=== PATIENT | female | born 1985 | race Caucasian/White ===

== ENCOUNTER 2021-12-11 11:09 | Emergency (ER) | payer OTHER, MEDICAID, SELFPAY ==
[2021-12-11 11:39] VITALS: BP 138/98; PULSE 96; RESP 19; TEMP 36.2; O2SAT 100; BMI 19.8
[2021-12-11 14:25] LABS: Bacteria Urine Few (2-10); Culture Indicated Urine Cult Not Indicated; RBC Urine 0-1/HPF (0-5/HPF); Squamous Epithelial Cell Urine 5-10 /HPF (0-5/HPF); WBC Urine None Seen (0-5/HPF)
--- NOTE | 2021-12-11 14:35 | DI.US.S_ITS ---
PROCEDURE: US EXTREMITY NONVASC LOWER LT INDICATIONS: LUMP LEFT LABIA MAJORIS TECHNIQUE: Real-time scanning was performed of the left labia majora , with image documentation. COMPARISON: None. FINDINGS: Heterogeneous region measuring 3.8 x 3.8 x 3.7 cm. No internal vascularity is identified. No changes appreciated with Valsalva. No surrounding hyperemia. No overlying skin erythema noted by the commodities broker. IMPRESSION: Heterogeneous avascular region at the left labia majora measuring 3.8 cm. Etiology is uncertain. No changes appreciated with Valsalva maneuver. However, this does not exclude hernia. Abscess is also possibility but the abnormality is quite large in there is no surrounding hyperemia. Hematoma could have this appearance. Dictated by: Zia Pineda M.D. on 12/11/2021 at 15:07 Approved by: Zia Pineda M.D. on 12/11/2021 at 15:14
--- NOTE | 2021-12-11 15:40 | ED.SKABFB ---
HPI - Skin/Abscess/Foreign Bdy <Augustus Wagoner PA-C - Last Filed: 12/11/21 17:27> General Chief complaint: Skin/Abscess/Foreign Body Stated complaint: Large lump on inner upper thigh Time Seen by Provider: 12/11/21 14:12 Source: patient Mode of arrival: Family Vehicle Limitations: no limitations History of Present Illness HPI narrative: Patient is a 36-year-old female presenting to the emergency department today for an evaluation a mass on her inner left thigh. Patient states that she noticed the development of the mass yesterday and notes that it has progressively become more painful. She states that she has also experienced episodes of chills and nausea, stating that she has also experienced sinus pressure. She states that she is sexually active with 1 partner and initially believed that the area of soreness was from sexual intercourse. Of note, patient denies any abnormal vaginal discharge or increased vaginal bleeding. She denies fever, chest pain, cough, shortness of breath, vomiting, constipation, abdominal pain, dysuria, hematuria, or any other concerning symptoms. No further concerns were voiced at this time. Related Data Previous Rx's Medication Instructions Recorded amoxicillin 500 mg-potassium 1 tab PO BID #20 tab 12/11/21 clavulanate 125 mg tablet (Augmentin) oxycodone-acetaminophen 5 mg-325 1 tab PO Q6H PRN #20 tab 12/11/21 mg tablet (Percocet) Allergies Allergy/AdvReac Type Severity Reaction Status Date / Time No Known Drug Allergies Allergy Verified 12/11/21 11:39 Review of Systems <Augustus Wagoner PA-C - Last Filed: 12/11/21 17:27> Constitutional Constitutional: Denies chills, Denies fatigue, Denies fever(s), Denies frequent falls, Denies lethargy and Denies weakness Eyes Eyes: Denies loss of vision ENT Ears, Nose, Mouth, and Throat: Denies dizziness and Denies neck pain Cardiovascular Cardiovascular: Denies chest pain, Denies irregular heart rhythm, Denies lightheadedness, Denies palpitations, Denies dyspnea, Denies dyspnea on exertion and Denies orthopnea Respiratory Respiratory: Denies cough, Denies dyspnea, Denies dyspnea on exertion and Denies wheezing Gastrointestinal Gastrointestinal: Denies abdominal pain, Denies change in bowel habits, Denies diarrhea, Denies nausea and Denies vomiting Genitourinary Genitourinary: Denies hematuria, Denies flank pain, Denies urinary incontinence and Denies urinary urgency Musculoskeletal Musculoskeletal: Denies back pain, Denies muscle weakness, Denies neck pain, Denies numbness and Denies tingling Integumentary/Breasts Skin/Breast: Denies pruritus, Denies erythema, Denies rash, Denies wounds and Reports other (Mass along inner left thigh) Neurologic Neurologic: Denies behavioral changes, Denies confusion, Denies dizziness, Denies frequent falls, Denies loss of vision, Denies numbness, Denies tingling and Denies weakness Psychiatric Psychiatric: Denies behavioral changes and Denies confusion Endocrine Endocrine: Denies fatigue and Denies palpitations Allergic/Immunologic Allergic/Immunologic: Denies wheezing Patient History <Augustus Wagoner PA-C - Last Filed: 12/11/21 17:27> Social History Smoking Status: Current some day smoker Smoking Status: Current some day smoker tobacco type: cigarettes alcohol intake frequency: holidays/special occasions only Substance Use Type: marijuana Exam <Augustus Wagoner PA-C - Last Filed: 12/11/21 17:27> Narrative Exam Narrative: GENERAL: 36 year old patient appears stated age. Well-developed patient, in no acute distress. Appears anxious. HEAD: Atraumatic. Normocephalic. EYES: Pupils equal round and reactive. Extraocular motions intact. No scleral icterus. No injection or drainage. ENT: Nose without bleeding, purulent drainage. Throat without erythema, tonsillar hypertrophy or exudate. Airway patent. NECK: Trachea midline. Non tender CARDIOVASCULAR: Regular rate and rhythm without murmurs, gallops, or rubs. RESPIRATORY: Clear to auscultation. Breath sounds equal bilaterally. No wheezes, rales, or rhonchi. GASTROINTESTINAL: Abdomen soft, non-tender, nondistended. EXTREMITIES: No edema or joint tenderness. BACK: Nontender without deformity or crepitance. No flank tenderness. NEURO: AOx3. SKIN: No rash or erythema of visible areas. Approximately 3 cm in diameter area swelling that is mobile and tender to palpation. No overlying erythema, the mass is not noticeably fluctuant. No active discharge appreciated. Initial Vital Signs Initial Vital Signs: Vital Signs Temperature 97.1 F L 12/11/21 11:39 Pulse Rate 96 H 12/11/21 11:39 Respiratory Rate 19 12/11/21 11:39 Blood Pressure 138/98 H 12/11/21 11:39 Pulse Oximetry 100 12/11/21 11:39 Course <Augustus Wagoner PA-C - Last Filed: 12/11/21 17:27> Course Course Narrative: Ultrasound obtained. CBC, CMP, lipase ordered. Dr. Hollis examined the patient as well and believes the patient has a Bartholin gland abscess that requires SENIOR IT RECRUITER follow-up. Orders Ordered: ED Orders 12/11/21 13:32 Urine Microscopic Stat 12/11/21 14:35 US extremity nonvasc lower lt Stat 12/11/21 15:43 CBC Auto Diff [Complete Blood Count AUTO DIFF] Stat CMP [Comprehensive Metabolic Panel] Stat Lipase Stat Consultations Consultation #1: Consult with Dr. Weaver (SENIOR IT RECRUITER). Recommends having the patient come into the operating room tomorrow to have the abscess drained. Requests that in the meantime the patient begin a course of Augmentin and to be sent home with a prescription for Percocet. Time: 15:10 Vital Signs Vital signs: Vital Signs - 8 hr 12/11/21 11:39 Temperature 97.1 F L Pulse Rate 96 H Respiratory Rate 19 Blood Pressure 138/98 H Pulse Oximetry 100 MDM - Skin/Abscess/Foreign Bdy <Augustus Wagoner PA-C - Last Filed: 12/11/21 17:27> Lab Data Result diagrams: 12/11/21 15:43 12/11/21 15:43 Labs: Lab Results 12/11/21 12/11/21 12/11/21 Range/Units 13:32 15:43 15:43 WBC 9.0 (4.5-11.0) X10^3/uL RBC 4.78 (4.0-5.2) X10^6/uL Hgb 13.9 (12.0-16.0) g/dL Hct 41.0 (36-46) % MCV 85.8 (80-100) fL MCH 29.0 (26-34) PG MCHC 33.8 (30-36) % RDW 14.2 (11.6-14.8) % Plt Count 393 (150-400) X10^3/uL Neut % (Auto) 47.2 L (50-75) % Lymph % (Auto) 39.4 (25-40) % [place] % (Auto) 5.6 (3-14) % Eos % (Auto) 7.5 H (2-4) % Baso % (Auto) 0.3 (0-2) % Neut # (Auto) 4300 (7927-8370) /uL Lymph # (Auto) 3600 (8353-0584) /uL [place] # (Auto) 500 (0-900) /uL Eos # (Auto) 700 H (0-450) /uL Baso # (Auto) 0 (0-100) /uL Sodium 137 (137-145) mmol/L Potassium 3.2 L (3.4-5.1) mmol/L Chloride 102 (98-107) mmol/L Carbon Dioxide 30 (22-32) mmol/L BUN 12 (7-17) mg/dL Creatinine 0.76 (0.52-1.04) mg/dL Estimated GFR > 60.0 (>60) mL/min BUN/Creatinine Ratio 15.8 (6-22) Glucose 115 H (70-100) mg/dL Calcium 9.6 (8.4-10.2) mg/dL Total Bilirubin 0.3 (0.2-1.3) mg/dL AST 34 (14-36) IU/L ALT 19 (<35) IU/L Alkaline Phosphatase 50 (38-126) U/L Total Protein 8.2 (6.3-8.2) g/dL Albumin 4.7 (3.5-5.0) g/dL Globulin 3.5 (1.7-4.1) g/dL Albumin/Globulin Ratio 1.3 (1.0-2.8) Lipase 45 (23-300) U/L Urine RBC 0-1/hpf (0-5/HPF) Urine WBC None seen (0-5/HPF) Ur Squamous Epith Cells 5-10 /hpf H (0-5/HPF) Urine Bacteria Few (2-10) H (None) Ur Culture Indicated? Cult not indicated Point of Care Testing Test Results Negative Urine Dip Bedside Urine Glucose Negative Bedside Urine Bilirubin - Negative Bedside Urine Ketone - Negative Urine Specific [place] 1.005 Bedside Urine Occult Blood + Bedside Urine pH 6.5 Bedside Urine Protein - Negative Bedside Urine Urobilinogen - Negative Bedside Urine Nitrite - Negative Bedside Urine Leukocytes - Negative Esterase Imaging Data US - lower extremity: Radiologist's Impression: PROCEDURE:? US EXTREMITY NONVASC LOWER LT ? INDICATIONS:? LUMP LEFT LABIA MAJORIS ? TECHNIQUE:? Real-time scanning was performed of the left labia majora , with image documentation.? ? COMPARISON:? None. ? FINDINGS:? Heterogeneous region measuring 3.8 x 3.8 x 3.7 cm.? No internal vascularity is identified.? No changes appreciated with Valsalva.? No surrounding hyperemia.? No overlying skin erythema noted by the gut cleaner. ? IMPRESSION:? Heterogeneous avascular region at the left labia majora measuring 3.8 cm.? Etiology is uncertain. No changes appreciated with Valsalva maneuver.? However, this does not exclude hernia.? Abscess is also possibility but the abnormality is quite large in there is no surrounding hyperemia.? Hematoma could have this appearance.? ? ? Dictated by: Zia Pineda M.D. on 12/11/2021 at 15:07 ? ? Approved by: Zia Pineda M.D. on 12/11/2021 at 15:14 ? MDM Narrative Medical decision making narrative: Differential diagnosis to consider but not limited to [place] line when cyst versus abscess versus lymphadenopathy versus hernia. Discussed ultrasound results with patient and informed her of discussion with Dr. Weaver. Plan is to have the patient go to the operating room tomorrow to have the abscess drained. Patient expresses understanding and agrees to plan. Based off conversation with Dr. Weaver I agreed to send the patient home with a prescription for Augmentin and pain medications. Patient states at this time she is comfortable being discharged home and is stable for discharge. Strict return precautions were discussed with the patient prior to discharge. Discharge Plan Departure Patient Disposition: Home Clinical Impression: Abscess of Bartholin's gland Instructions: DI for Vulvar Abscess Activity Restrictions/Additional Instructions: *You have been diagnosed with Bartholin gland abscess *What to do: *Please continue to take your regular medications as directed. [X] New medication prescriptions sent to your pharmacy: [facility] [place] - Augmentin [X] New medication written as a paper prescription: Percocet [ ] No new medications given You were evaluated in the emergency department today for tenderness and swelling along the left inner thigh. Ultrasound imaging and physical examination are consistent with a Bartholin gland abscess. Dr. Weaver agreed to drain the abscess in the operating room tomorrow. I have sent to home with prescriptions for Augmentin, which is an antibiotic. Additionally, I have prescribed Percocet to help alleviate any pain or discomfort. Please apply warm compresses to the area to alleviate discomfort. Please follow-up with the primary care provider within the next 2-3 days for further evaluation. Do not hesitate to return to the emergency department if you experience worsening pain, fever, discharge from the abscess, or any other concerning symptoms. *Please follow up with your primary care provider in 2-3 days, call for an appointment. Let them know you were seen in the Emergency Department and that we ask that you be seen in follow up. We will electronically transmit a record of today's note if your PCP is in our system *If you do not have a primary care provider please contact the [facility] line at [phone]. They will ask some questions about your medical history and help get you set up with a doctor in the community. *Return to Emergency Department if you should have any new, worsening or concerning symptoms, such as fever greater than 101 F, shaking chills, worsening pain, persistent vomiting or other bothersome symptoms. Prescriptions: New amoxicillin-pot clavulanate [Augmentin] 500-125 mg tablet 1 tab PO BID Qty: 20 0RF oxycodone-acetaminophen [Percocet] 5-325 mg tablet 1 tab PO Q6H PRN (Reason: pain) Qty: 20 0RF Referrals: Taniya Santana MD [Primary Care Provider] -
[2021-12-11 15:57] LABS: Add Manual Diff / Slide Review NO; Basophils Absolute Auto 0 /uL (0-100); Basophils Percent Auto 0.3 % (0-2); Eosinophils Absolute Auto 700 /uL (0-450); Eosinophils Percent Auto 7.5 % (2-4); Hemoglobin 13.9 g/dL (12.0-16.0); Lymphocytes Absolute Auto 3600 /uL (1100-4500); Lymphocytes Percent Auto 39.4 % (25-40); Mean Corpuscular HGB Conc 33.8 % (30-36); Mean Corpuscular Volume 85.8 fL (80-100); Monocytes Absolute Auto 500 /uL (0-900); Monocytes Percent Auto 5.6 % (3-14); Neutrophils Absolute Auto 4300 /uL (1500-7000); Neutrophils Percent Auto 47.2 % (50-75); Platelet Count 393 X10^3/uL (150-400); Red Blood Cell Count 4.78 X10^6/uL (4.0-5.2); Red Cell Distribution Width 14.2 % (11.6-14.8)
[2021-12-11 16:02] LABS: Alanine Aminotransferase 19 IU/L (<35); Albumin 4.7 g/dL (3.5-5.0); Albumin Globulin Ratio 1.3 (1.0-2.8); Alkaline Phosphatase 50 U/L (38-126); Aspartate Aminotransferase 34 IU/L (14-36); BUN Creatinine Ratio 15.8 (6-22); Bilirubin Total 0.3 mg/dL (0.2-1.3); Blood Urea Nitrogen 12 mg/dL (7-17); Calcium 9.6 mg/dL (8.4-10.2); Carbon Dioxide 30 mmol/L (22-32); Chloride 102 mmol/L (98-107); Estimated Glomerular Filt Rate > 60.0 mL/min (>60); Globulin 3.5 g/dL (1.7-4.1); Glucose 115 mg/dL (70-100); HEMOLYSIS < 15 (0-50); Lipase 45 U/L (23-300); Potassium 3.2 mmol/L (3.4-5.1); Sodium 137 mmol/L (137-145); Total Protein 8.2 g/dL (6.3-8.2)
== END 2021-12-11 17:42 | disposition home or self-care (01) ==
PROVIDERS: Emergency Medicine; Emergency Provider Physician Assistant; PCP Family Medicine
DX: N75.1 Abscess of Bartholin's gland (principal)
CPT/HCPCS: 76882; 80053; 81003; 81015; 81025; 83690; 85025; 99282; 99283

== ENCOUNTER 2021-12-12 14:46 | Day surgery (SDC) | payer OTHER, MEDICAID, SELFPAY ==
[2021-12-12] VITALS (10 sets, daily range): BP systolic 109–146; BP diastolic 61–106; PULSE 71–90; RESP 12–18; TEMP 36.4–37; O2SAT 98–100; BMI 19.8
[2021-12-12] MEDS: LACTATED RINGERS 1,000 ML 42 ML IV (15:32)
[2021-12-12 15:54] LABS: COVID19 -Nasal RAPID Negative (Negative)
--- NOTE | 2021-12-12 16:23 | PM.HP.1 ---
History of Present Illness History of Present Illness Date Patient Seen: 12/12/21 Time Patient Seen: 16:23 Chief complaint: SDC Narrative: Patient is a 36-year-old 0 who presents for an incision and drainage of a left Bartholin's gland abscess verses excision of a Bartholin's gland cyst. Patient was seen in the emergency department last evening. She had eaten on her way here. We were not able to take her to the operating room last evening. Patient History Family & Social History Social History: household members significant other Tobacco & Substance use: Tobacco type cigarettes,cannabis/marijuana Smoking Status Current some day smoker alcohol intake current alcohol intake frequency holiday/special occasion Substance Use Type marijuana Meds Home Medications and Allergies Home Medications Medication Instructions Recorded Confirmed Type amoxicillin 500 mg-potassium 1 tab PO BID #20 tab 12/11/21 12/12/21 Rx clavulanate 125 mg tablet (Augmentin) oxycodone-acetaminophen 5 mg-325 1 tab PO Q6H PRN #20 tab 12/11/21 12/12/21 Rx mg tablet (Percocet) bupropion HCl 100 mg tablet 100 mg PO DAILY 12/12/21 12/12/21 History dextroamphetamine-amphetamine 20 40 mg PO BID 12/12/21 12/12/21 History mg tablet escitalopram oxalate 5 mg tablet 20 mg PO DAILY 12/12/21 12/12/21 History lorazepam 0.5 mg tablet 0.25 mg PO DAILY PRN 12/12/21 12/12/21 History valacyclovir 1 gram tablet 1 mg PO DAILY 12/12/21 12/12/21 History Allergies Allergy/AdvReac Type Severity Reaction Status Date / Time No Known Drug Allergies Allergy Verified 12/11/21 11:39 Exam Vital Signs (past 8 hours): - 12/12/21 15:33 Temperature 98.4 F Pulse Rate 86 Respiratory Rate 16 Blood Pressure 146/95 H Pulse Oximetry 100 Oxygen Delivery Method Room Air Narrative Exam Narrative: HEENT: No thyromegaly, no anterior cervical or supraclavicular lymphadenopathy. Lungs:Clear to auscultation bilaterally, no wheezes. Cardiovascular: Regular rate and rhythm, no murmurs, rubs, or gallops. Abdomen: No scars. No hepatosplenomegaly. No masses palpable. External genitalia: 3.5 cm x 3.5 cm mass in the left Bartholin's gland Vagina: Normal Cervix: Normal. Nulliparous Bimanual exam: 6 Week size uterus. Mobile. No adnexal masses or tenderness Objective Labs Labs: Laboratory Results - last 24 hr 12/12/21 15:17 SARS-CoV-2 (PCR) Negative Assessment & Plan Assessment & Plan narrative: Assessment: 36-year-old 0 with a left Bartholin's gland abscess/possible cyst Plan: Incision and drainage of left Bartholin's gland abscess, versus excision of the Bartholin's gland cyst. The risks, benefits, and alternatives to the procedure were explained to the patient. The risks including bleeding and infection. She understands these risks and agrees to proceed. A full par Q was held and consent form was signed. COVID-19 COVID-19 status: Negative Result date/Date tested (Pos, Neg/Pending): 12/12/21 Time Spent With Patient Time with patient: less than 30 minutes Critical Care time: I spent a total of [] minutes of critical care time on this patient's care today; this time is exclusive of procedural time.
--- NOTE | 2021-12-12 16:28 | PM.PREOP ---
Pre-operative Note COVID-19 COVID-19 status: Negative Result date/Date tested (Pos, Neg/Pending): 12/12/21 Criteria for continued procedure: Delay expected to result in less-positive ultimate med/surg outcome and Non-surgical alternatives not available or appropriate per current SOC Interval Note History & Physical reviewed/Exam performed by Physician: Yes Changes to H&P: No H&P completed within 30 days and has changed as indicated here:: 12/12/21
--- NOTE | 2021-12-12 16:52 | SUR.OPER ---
Lithotomy on padded OR bed, head on pillow, arms secured on padded arm boards at <90 degrees abduction. Legs secured in padded yellow fins stirrups.
[2021-12-12] MEDS: BUPIVACAINE 0.5% (PF) 30 ML, EPINEPHrine 0.15 MG INJ (17:02)
--- NOTE | 2021-12-12 17:25 | PM.GYNOP.1 ---
Operative Date/Time/Diagnoses Date of procedure: 12/12/21 Time of procedure: 17:25 Pre-op diagnosis: Left Bartholin's gland cyst vs abscess Post-op diagnosis: same Procedure & Clinicians Procedure: Procedures Operation Date: 12/12/21 15:45 Actual Procedure Side Surgeon p Incision and Drainage vulvar Hematoma Left Heena Weaver MD Indications: Painful lump on the left side of the vulva Surgeon: Heena Weaver Anesthesia Type: General (LMA) and Local Operative Notes Findings: 5cm x 4cm mass on the left vulva Closure Type: not applicable Specimen(s): none Estimated blood loss (mL): 5 Blood products transfused: none Procedure in detail: After informed consent was obtained, the patient was taken to the operating room and placed in the dorsal supine position. After adequate LMA general anesthesia was achieved, she was placed in the dorsal lithotomy position, and prepped and draped in the usual sterile fashion. A time-out was performed. An examination under anesthesia revealed a 5 cm x 4 cm mass of the left vulva. This did not appear to be involving the Bartholin's gland. 6 cc of 0.5% Marcaine with epinephrine were injected subcutaneously. A 1.5 cm incision was made over the mass and carried through to the cavity. Upon entering the cavity there was a large amount of old clot that extruded from the wound. The wound was probed with a hemostat. Several more clots came out of cavity. The cavity was irrigated with warm normal saline. It was probed again with a hemostat. No further clot was seen. The Bovie was used to cauterize a bleeding area in the cavity. Two deep sutures with 3-0 chromic were placed to close the cavity. Four simple interrupted sutures with 3-0 chromic were used to keep the wound open to drain. Hemostasis was achieved. Sponge, lap, and instrument counts were correct x2. The patient tolerated the procedure well, and was taken to PACU in stable condition. Complications: none Post-operative Condition: stable Disposition: PACU Plan for aftercare: Home after recovery
[2021-12-12] MEDS: OXYCODONE/ACETAMINOPHEN 5/325 TABLET 1 TAB PO (17:53)
[2021-12-12] MEDS: KETOROLAC 30 MG/ML VIAL IV (17:55)
--- NOTE | 2021-12-12 18:29 | SUR.PHASEII ---
1825-12/12/21 Report off to Aide. mother update. call to ride for discharge.
[2021-12-12] MEDS: ONDANSETRON 4 MG/2 ML INJ IV (19:05)
--- NOTE | 2021-12-12 19:15 | SUR.PHASEII ---
Pt up to BR. developed nausea after ambulation. States she thinks it's the Percocet. Dr Weiner notified via Dr Avery of nausea and order for zofran received. Pt now lying down, cool rag to head, resting.
== END 2021-12-12 19:30 | disposition home or self-care (01) ==
PROVIDERS: PCP Family Medicine; Referring Provider Obstetrics & Gynecology; Visit Provider Obstetrics & Gynecology
PROC: (CPT 56440; principal; 2021-12-12 15:45)
DX: N90.89 Other specified noninflammatory disorders of vulva and perineum (principal); F17.210 Nicotine dependence, cigarettes, uncomplicated
CPT/HCPCS: 56405; 81025; 87635; J0171; J1100; J1885; J2250; J2405; J2704; J3010

== ENCOUNTER → 2023-01-30 10:26 | Outpatient (CLI) | payer OTHER, MEDICAID, SELFPAY ==
--- NOTE | 2023-01-30 10:29 | DI.RAD.S_ITS ---
PROCEDURE: XR HAND RT 2V INDICATIONS: bilateral trigger thumbs TECHNIQUE: 2 views of the hand(s) acquired. COMPARISON: None. FINDINGS: Bones: No fractures or dislocations. Carpal bones are normally aligned. No suspicious bony lesions. Soft tissues: No suspicious soft tissue calcifications. 1-2 millimeter radiopaque foreign body projecting along the radial side of the 2nd middle phalanx. IMPRESSION: No acute bony abnormality. Small radiopaque foreign body projecting over the 2nd middle phalanx. Dictated by: Alvaro Monaco M.D. on 01/30/2023 at 11:11 Approved by: Alvaro Monaco M.D. on 01/30/2023 at 11:12
--- NOTE | 2023-01-30 10:29 | DI.RAD.S_ITS ---
PROCEDURE: XR HAND LT 2V INDICATIONS: bilateral trigger thumbs TECHNIQUE: 2 views of the hand(s) acquired. COMPARISON: None. FINDINGS: Bones: No fractures or dislocations. Carpal bones are normally aligned. No suspicious bony lesions. Soft tissues: No suspicious soft tissue calcifications. IMPRESSION: No acute bony abnormality. Dictated by: Alvaro Monaco M.D. on 01/30/2023 at 11:10 Approved by: Alvaro Monaco M.D. on 01/30/2023 at 11:11
== END ==
PROVIDERS: PCP Nurse Practitioner Family; Referring Provider Nurse Practitioner Family; Visit Provider Nurse Practitioner Family
DX: M65.311 Trigger thumb, right thumb (principal); M65.312 Trigger thumb, left thumb; M79.5 Residual foreign body in soft tissue
CPT/HCPCS: 73120